=== PATIENT | female | born 1995 | race Caucasian/White ===

== ENCOUNTER → 2016-05-14 | Outpatient (CLI) | payer OTHER ==
[2016-05-14 16:46] LABS: BASO % 0.6 % (0.0-2.0); EOS # 0.1 (0.0-0.7); EOS % 1.4 % (0-4.0); GRAN # 2.2 (1.4-6.5); GRAN % 44.5 % (42.2-75.2); HEMATOCRIT 40.1 % (37.0-47.0); HEMOGLOBIN 13.6 g/dl (12.5-16.0); LYMPH # 2.2 (1.2-3.4); LYMPH % 44.9 % (20.0-51.0); MEAN CELL VOLUME 89 fl (80.0-100.0); MEAN CORPUSCULAR HEMOGLOBIN 30 pg (27.0-31.0); MEAN CORPUSCULAR HGB CONC 34 g/dl (33.0-37.0); MONO # 0.4 (0.1-0.6); MONO % 8.6 % (1.7-9.3); PLATELET COUNT 272 K/mm3 (130-400); RED BLOOD COUNT 4.52 M/mm3 (4.10-5.30); REDCELL DISTRIBUTION WIDTH-CV 11.6 % (11.5-14.5); WHITE BLOOD COUNT 4.9 K/mm3 (4.8-10.8)
[2016-05-14 16:49] LABS: ADJUSTED CALCIUM 9.2 mg/dL (8.4-10.2); ALBUMIN 4.5 gm/dL (3.5-5.0); BILIRUBIN,TOTAL 0.6 mg/dL (0.0-1.0); CALCIUM 9.6 mg/dL (8.4-10.2); CREATININE, serum 0.69 mg/dL (0.52-1.25); POTASSIUM 4.5 mmol/L (3.4-5.0); TOTAL PROTEIN 7.3 gm/dL (6.4-8.2)
[2016-05-14 17:19] LABS: THYROID STIMULATING HORMONE 1.81 uIU/mL (0.465-4.680)
== END ==
LOC: COL.LAB 14:46
PROVIDERS: Family Medicine
DX: M41.85 Other forms of scoliosis, thoracolumbar region (principal); Z00.00 Encounter for general adult medical examination without abnormal findings

== ENCOUNTER → 2016-06-23 | Outpatient (REF) ==
[2016-06-23 23:57] LABS: HEPATITIS B SURFACE AB-QL Positive (())
== END ==
LOC: COL.EMP 10:18
DX: Z02.1 Encounter for pre-employment examination (principal)

== ENCOUNTER → 2016-10-13 | Outpatient (REF) | LOC: WSOH 09:15 | DX: Z02.89 Encounter for other administrative examinations (principal) ==

== ENCOUNTER → 2016-11-22 | Outpatient (REF) | LOC: WSOH 09:00 | DX: Z02.89 Encounter for other administrative examinations (principal) ==

== ENCOUNTER → 2017-05-29 | Outpatient (CLI) | payer BC | LOC: COL.RAD 05-27 09:45 | DX: N94.10 Unspecified dyspareunia (principal); R10.32 Left lower quadrant pain ==

== ENCOUNTER → 2018-04-23 | Outpatient (CLI) | payer BC | LOC: COL.RAD 14:52 | DX: M41.125 Adolescent idiopathic scoliosis, thoracolumbar region (principal) ==